=== PATIENT | female | born 1970 | race Caucasian/White ===

== ENCOUNTER → 2022-01-26 | Outpatient (CLI) | payer OTHER ==
[~2022-01-26] MED LIST: HYDCHL25 PO; LISI5 PO; METO100ER PO
[2022-01-26 09:15] LABS: BASOPHILS ABSOLUTE AUTO 0.05 K/mm3 (0.00-0.23); BASOPHILS PERCENT AUTO 0 % (0-2); EOSINOPHILS ABSOLUTE AUTO 0.05 K/mm3 (0.00-0.68); EOSINOPHILS PERCENT AUTO 0 % (0-6); Hematocrit 45.4 % (33.0-51.0); IMMATURE GRAN ABSOLUTE AUTO 0.08 K/mm3 (0.00-0.10); IMMATURE GRAN PERCENT AUTO 1 % (0-1); LYMPHOCYTES ABSOLUTE AUTO 2.03 K/mm3 (0.84-5.20); LYMPHOCYTES PERCENT AUTO 17 % (21-46); MONOCYTES ABSOLUTE AUTO 0.67 K/mm3 (0.16-1.47); MONOCYTES PERCENT AUTO 6 % (4-13); Mean Corpuscular HGB 31.4 pg (26.0-34.0); Mean Corpuscular HGB Conc 35.2 g/dL (31.5-36.5); Mean Corpuscular Volume 89 fL (80-100); Mean Platelet Volume 9.6 fL (9.1-12.4); NEUTROPHILS ABSOLUTE AUTO 9.14 K/mm3 (1.96-9.15); NEUTROPHILS PERCENT AUTO 76 % (41-73); Platelet Count 241 K/mm3 (150-400); RDW Standard Deviation 38.9 fL (35.1-46.3); Red Blood Cell Count 5.09 M/mm3 (3.80-5.20); White Blood Cell Count 12.02 K/mm3 (4.00-11.30)
[2022-01-26 09:24] LABS: Albumin, Blood 4.4 g/dL (3.4-5.0); Bilirubin, Total 0.8 mg/dL (0.1-1.0); Bun/Creatinine Ratio 17.2 (12.0-20.0); Calcium, Blood 10.3 mg/dL (8.5-10.1); Creatinine, Blood 1.34 mg/dL (0.40-1.00); Globulin, Blood 4.3 g/dL (2.2-4.0); Potassium, Blood 4.4 mmol/L (3.5-5.5); Total Protein, Blood 8.7 g/dL (6.4-8.2)
== END | disposition home or self-care (01) ==
LOC: LAB SHORT 09:11
PROVIDERS: Physician Assistant Medical
DX: R10.84 Generalized abdominal pain (principal)
CPT/HCPCS: 80053; 85025

== ENCOUNTER 2023-03-09 11:39 | Inpatient (IN) | payer OTHER ==
[2023-03-09] VITALS (15 sets, daily range): BP systolic 120–180; BP diastolic 78–111
[~2023-03-09] VITALS: Ht 149.9 cm; Wt 54.4 kg
[2023-03-09 12:37] LABS: BASOPHILS ABSOLUTE AUTO 0.04 K/mm3 (0.00-0.23); BASOPHILS PERCENT AUTO 0 % (0-2); EOSINOPHILS ABSOLUTE AUTO 0.05 K/mm3 (0.00-0.68); EOSINOPHILS PERCENT AUTO 0 % (0-6); Hematocrit 43.5 % (33.0-51.0); Hemoglobin 15.2 g/dL (11.5-16.0); IMMATURE GRAN PERCENT AUTO 1 % (0-1); LYMPHOCYTES ABSOLUTE AUTO 2.29 K/mm3 (0.84-5.20); LYMPHOCYTES PERCENT AUTO 15 % (21-46); MONOCYTES PERCENT AUTO 3 % (4-13); Mean Corpuscular HGB 31.6 pg (26.0-34.0); Mean Corpuscular HGB Conc 34.9 g/dL (31.5-36.5); Mean Corpuscular Volume 90 fL (80-100); Mean Platelet Volume 9.6 fL (9.1-12.4); NEUTROPHILS ABSOLUTE AUTO 12.29 K/mm3 (1.96-9.15); NEUTROPHILS PERCENT AUTO 80 % (41-73); Platelet Count 431 K/mm3 (150-400); RDW Coefficient Variation 11.9 % (11.7-14.2); RDW Standard Deviation 39.6 fL (35.1-46.3); Red Blood Cell Count 4.81 M/mm3 (3.80-5.20); White Blood Cell Count 15.27 K/mm3 (4.00-11.30)
[2023-03-09 13:06] LABS: Albumin, Blood 4.2 g/dL (3.4-5.0); Albumin/Globulin Ratio 0.9 (0.8-1.8); Bilirubin, Direct 0.1 mg/dL (0.0-0.3); Bilirubin, Indirect 0.5 mg/dL (0.1-0.7); Bilirubin, Total 0.6 mg/dL (0.1-1.0); Bun/Creatinine Ratio 15.7 (12.0-20.0); Calcium, Blood 11.4 mg/dL (8.5-10.1); Creatinine, Blood 1.21 mg/dL (0.40-1.00); Globulin, Blood 4.6 g/dL (2.2-4.0); Potassium, Blood 4.7 mmol/L (3.5-5.5); Total Protein, Blood 8.8 g/dL (6.4-8.2)
[2023-03-09] MEDS ORDERED: MOBIC15 MG PO (14:03)
[2023-03-09] MEDS ORDERED: LISI20 PO (14:14)
--- NOTE | 2023-03-09 14:39 | NUR ---
PT TO SDS VIA JESSENIA FROM ED, ACCOMPANIED BY FRIEND. Pre-Op teaching done. Pt verbalizes understanding. Patient confirms NPO status and agrees with scheduled surgery. Lungs clear T/O to Auscultation. Surgical site prepped with 2% Chlorhexidine cloth wipe.
[2023-03-09 14:43] LABS: Source, Urine Clean Catch
[2023-03-09 15:14] LABS: Appearance, Urine Clear (Clear); Bilirubin, Urine Neg (Neg); Blood, Urine Neg (Neg); Color, Urine Yellow (P-Yellow); Glucose Qualitative, Urine Neg (Neg); Ketones, Urine 1+ (Neg); Leukocyte Esterase, Urine Neg (Neg); Nitrite, Urine Neg (Neg); Protein, Urine 2+ (Neg); Urobilinogen, Urine NORM (Normal)
[2023-03-09 15:22] LABS: Bacteria Rare /hpf; Red Blood Cells, Urine 0-2 /hpf (0-2); Squamous Epithelial Cells Rare /hpf (Few); White Blood Cells, Urine 0-2 /hpf (0-5)
--- NOTE | 2023-03-09 17:33 | NUR ---
ARRIVAL TO SURGICAL UNIT ASSESSMENT CHARTED. DENIES N/V. FEW ICE CHIPS GIVEN. NGT CONNECTED TO LIS. PLEASANT & COOPERATIVE. PLAN TO START FENT GAS PRODUCER ONCE MEDICATION IS AVAILABLE FROM PHARMACY. FAMILY AT SIDE.
[2023-03-10] VITALS (8 sets, daily range): BP systolic 120–155; BP diastolic 78–96
--- NOTE | 2023-03-10 01:33 | NUR ---
PHARMACY CLARIFICATION. LATE ENTRY. TELEPHONE CALL PLACED TO PHARMACY REGARDING COMPATIBILITY QUESTION OF ZOSYN, LR, AND TRANSPORTATION MANAGER FENTANYL IN THE SAME LINE. PHARMACIST RECOMMENDED NS WITH ZOSYN IN A SEPARATE LINE. DISCUSSED WITH MOLD WASHER RONDA. NURSING PROTOCOL FOR TKO NS PLACED. NS AND ZOSYN IN ONE LINE AND LR AND TRANSPORTATION MANAGER IN ANOTHER.
[2023-03-10 04:54] LABS: BASOPHILS ABSOLUTE AUTO 0.02 K/mm3 (0.00-0.23); BASOPHILS PERCENT AUTO 0 % (0-2); EOSINOPHILS ABSOLUTE AUTO 0.03 K/mm3 (0.00-0.68); EOSINOPHILS PERCENT AUTO 0 % (0-6); Hematocrit 33.4 % (33.0-51.0); Hemoglobin 11.4 g/dL (11.5-16.0); IMMATURE GRAN ABSOLUTE AUTO 0.04 K/mm3 (0.00-0.10); IMMATURE GRAN PERCENT AUTO 0 % (0-1); LYMPHOCYTES ABSOLUTE AUTO 1.34 K/mm3 (0.84-5.20); LYMPHOCYTES PERCENT AUTO 13 % (21-46); MONOCYTES ABSOLUTE AUTO 0.48 K/mm3 (0.16-1.47); MONOCYTES PERCENT AUTO 5 % (4-13); Mean Corpuscular HGB 31.4 pg (26.0-34.0); Mean Corpuscular HGB Conc 34.1 g/dL (31.5-36.5); Mean Corpuscular Volume 92 fL (80-100); Mean Platelet Volume 9.9 fL (9.1-12.4); NEUTROPHILS ABSOLUTE AUTO 8.07 K/mm3 (1.96-9.15); NEUTROPHILS PERCENT AUTO 81 % (41-73); Platelet Count 239 K/mm3 (150-400); RDW Coefficient Variation 12.2 % (11.7-14.2); RDW Standard Deviation 40.9 fL (35.1-46.3); Red Blood Cell Count 3.63 M/mm3 (3.80-5.20); White Blood Cell Count 9.98 K/mm3 (4.00-11.30)
[2023-03-10 05:54] LABS: Calcium, Blood 8.5 mg/dL (8.5-10.1); Creatinine, Blood 1.31 mg/dL (0.40-1.00); Potassium, Blood 4.6 mmol/L (3.5-5.5)
--- NOTE | 2023-03-10 07:37 | NUR ---
SHIFT SUMMARY NOC. PT POD 1 FOR EXPLORATORY ABDOMINAL SURGERY. PT NG TUBE PATENT AND CONNECTED TO LIS AND DRAINING BROWN OUTPUT. PT NADER DRAIN PRODUCED 35 ML OF PINK SEROUS FLUID. PT'S PAIN CONTROLLED WITH SAW RUNNER AT THIS TIME. PT HAD LABETALOL HELD FOR 0000 DOSING, BUT WAS GIVEN AT 0600. PT DENIES N/V. PT'S EVANS IS PATENT DRAINING TO GRAVITY AND BELOW BLADDER LEVEL. PT RESTED WITH EYES CLOSED AND CALL LIGHT IN REACH.
--- NOTE | 2023-03-10 08:33 | NUR ---
NGT ONLY SCANT DRNG FROM NGT SINCE ADMIT. NGT ASPIRATED. NO OUTPUT. FLUSHED w/ 10MLs OF AIR & AUSCULATED; AIR SOUND EASILY RECOGNIZED.
--- NOTE | 2023-03-10 18:00 | NUR ---
SHIFT SUMMARY PT HAS DONE WELL TODAY. MADE GOALS FOR OOB x 2 & UP TO CHAIR x 1; MET GOALS. HAS DENIED N/V. PAIN REASONABLY CONTROLLED w/ BUSINESS SALES CONSULTANT. DENIT, NADER WNL.
--- NOTE | 2023-03-10 22:40 | NUR ---
KAIAKO KOHANGA REO KAIAKO KOHANGA REO PUMP WASTE DOCUMENTATION. WASTED 1.5mL OF FENTANYL. WITNESSED BY MACHINE PLATE STACKER.
[2023-03-11] VITALS (7 sets, daily range): BP systolic 124–152; BP diastolic 83–98
--- NOTE | 2023-03-11 00:05 | NUR ---
MARIO MIDLINE MARIO NOT SEALING TO SUCTION. MARIO REINFORCED/REDRESSED TO ATTEMPT RETURN OF SUCTION. SITE CLEANED AND PATTED DRY. DRESSING CHANGED TO GAUZE c ADHESIVE BORDER. C/D/I.
--- NOTE | 2023-03-11 04:20 | NUR ---
SHIFT SUMMARY POD 2 EX LAP c CLAUDIA PATCH. NO ACUTE CHANGES OVERNIGHT. VS WNL FOR PT. TELE REPORT SINUS RHYTHM T/O NIGHT. BORDERED GAUZE C/D/I, SCANT SANGUINOUS DRAINAGE. NADER DRAINING SEROSANGUINOUS FLUID. NG TUBE DRAINING BILE TO LOW INTERMITTEN SUCTION, NO SIGNIFICANT OUTPUT OVERNIGHT. NPO, EXCEPT FOR MINIMAL ICE CHIPS. EVANS TO D/C THIS AM, FLOWING TO GRAVITY, YELLOW. AMBULATING SBA R/T LINES/CORDS. PT REPORTS PAIN TOLERABLE PER OPTICAL FABRICATOR ADMINISTRATION. CALL LIGHT WITHIN REACH, BED IN LOWEST POSITION, WILL REPORT TO DAY RN.
--- NOTE | 2023-03-11 11:20 | NUR ---
Pt. is awake and sitting in a recliner when she welcomes my visit. Pt. is pleasant. Facilitate a life review. Listen with interest and empathy. 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 As we continue in conversation, rapport is established. Pt. displays evidence of awareness and engagement. Pt. verbalized words of encouragement for the care she has received at [facility]. Prayed with Pt. Pt. verbalized gratitude for the spiritual care visit.
--- NOTE | 2023-03-11 19:31 | NUR ---
SUMMARY: PT IS POD2 EX LAP WITH GRAM PATCH. A/O, VSS. TELE WNL. SURGICAL SITE WNL, SLIGHT DRAINAGE NOTED, CHANGED X1 TODAY BY DR. MOREIRA. NADER DRAIN WNL, SS DRAINAGE, SEE CHARTED OUTPUT. NGT TO LIS, TOTAL OUTPUT 60ML GREEN/BROWN DRAINAGE. PT REPORTS IS PASSING GAS, ACTIVE BOWEL TONES. PT UP AMBULATING AND TO CHAIR X2 TODAY, TOLERATES WELL. PRACTICAL NURSING TEACHER DEMAND BUTTON CONTINUES TO MANAGE PAIN WELL. ANTIBIOTICS INFUSED. NO ACUTE CONCERNS, REPORT PASSED TO AKITY RN.
[2023-03-12 02:05] VITALS: BP 153/87
[2023-03-12 04:49] LABS: Bun/Creatinine Ratio 8.7 (12.0-20.0); Calcium, Blood 8.8 mg/dL (8.5-10.1); Creatinine, Blood 1.15 mg/dL (0.40-1.00); Magnesium, Blood 1.8 mg/dL (1.6-2.4); Phosphorus, Blood 2.4 mg/dL (2.5-4.9); Potassium, Blood 3.6 mmol/L (3.5-5.5)
--- NOTE | 2023-03-12 05:45 | NUR ---
NOC SHIFT SUMMARY: CONTINUES ON FENTANYL RESEARCH ASSISTANT PROFESSOR. UP WITH SBA TO BATHROOM. NADER DRAIN IN PLACE. NG TUBE CONTINUES. MIDLINE INCISION DRESSING CDI. PATIENT IS ALERT AND ORIENTED X4.
[2023-03-12 07:07] VITALS: BP 147/96
[2023-03-12 11:43] VITALS: BP 162/90
[2023-03-12 15:18] VITALS: BP 161/102
--- NOTE | 2023-03-12 18:32 | NUR ---
SHIFT SUMMARY PT A/OX 4. PLEASANT AND COOPERATIVE. ABLE TO MAKE NEEDS KNOWN. PT HAS BEEN NPO T/O SHIFT. NG TUBE PATENT AND DRAINING; 400MLS OUT THIS SHIFT. NADER DRAIN IN PLACE. NO S/S OF INFECTION 25MLS OUTPUT SEROSANGUINEOUS. PT UT TO THE BATHROOM W/ ASSISTANCE. FOUNDATION MAKER IN PLACE WITH PAIN CONTROLLED. DR VARGAS AT BEDSIDE TODAY TO OBSERVE DRAIN AND SURGICAL DRESSING. NO CONCERNS NOTED. PLAN FOR UPPER GI STUDY ON TUESDAY. PT TO BE NPO UNTIL THAT TIME.
[2023-03-12 18:40] VITALS: BP 158/99
[2023-03-13] VITALS (9 sets, daily range): BP systolic 135–167; BP diastolic 83–106
--- NOTE | 2023-03-13 04:57 | NUR ---
SHIFT SUMMARY PT HAS RESTED OFF AND ON T/O THE NIGHT. FENTANYL CLEAN IN PLACES OPERATOR CONTINUED ORDERED. PT RATES HER PAIN 5 WHEN ASKED AND STATES HER PAIN HAS BEEN TOLERABLE. NG TUBE IN PLACE WITH A MODERATE AMOUT OF GREEN DISCHARGE. NADER DRAIN IN PLACE, WITH MODERATE AMOUNT OF SEROSANGUINOUS DISCHARGE. MEDIPORE DRESSING C/D/I. BOWEL TONES HYPOACTIVE AT THE START OF THE SHIFT. SHE REPORTS PASSING GAS, AND HAD A BM THIS AM. PT HYPERTENSIVE, MEDS PER EMAR. IV ANTIBIOTICS CONTINUED PER ORDERS. PT HAS BEEN HAVING SOME HALLUCINATIONS THIS SHIFT, PT AWOKE FROM SLEEPING AND THOUGHT HER ROOM WAS FLOODING, SHE PRESSED HER CALL LIGHT AND ASKED STAFF TO COME TO HER ROOM. SURVEY RESEARCH ANALYST WENT TO ROOM AND PT TOLD HER THAT SHE WAS STANDING DIRECTLY IN THE WATER. AFTER A FEW MINUTES PT REALIZED THAT SHE WAS HALLUCINATING. PT OTHERWISE HAS BEEN A/OX4. 1 ASSIST TO THE BATHROOM. BED IN LOWEST POSITION, CALL LIGHT WITHIN REACH.
--- NOTE | 2023-03-13 18:54 | NUR ---
DRESSING CHANGE ABD DRESSING CHANGED, ISLAND DRESSING PLACED. CLEANSED AND CHANGED CHG DRESSING AROUND NADER DRAIN. TAPE SECURING NG TUBE CHANGED.
--- NOTE | 2023-03-13 19:16 | NUR ---
SHIFT SUMMARY PT IS POD#4 FROM A CLAUDIA PATCH. PT IS HAVING BM'S BUT NG TUBE REMAINS IN PLACE AT THIS TIME. PAIN MANAGED WITH COLLAR CLOSER LOCKSTITCH. HALLUCINATIONS HAVE DECREASED AND PT IS ATTEMPTING TO REDUCE USE. PT IS FORGETFUL BED ALARM IN PLACE. PT IS A SBA FOR HELP WITH LINES AND TUBES. CALL LIGHT WITHIN REACH.
[2023-03-14 05:50] VITALS: BP 157/100
[2023-03-14 07:14] VITALS: BP 152/96
--- NOTE | 2023-03-14 07:40 | NUR ---
POD 5 S/P CLAUDIA PATCH. BP REMAINS ELEVATED, PT ASYMPTOMATIC, MEDICATED PER EMAR. DRESSING CDI. PT REP PAIN MINIMAL, USED 30MCG FROM REVENUE OFFICER. PT C/O MILD NAUSEA, ZOFRAN GIVEN W/REP RELIEF. NGT HAD 400ML GREEN DRNG OUT. PT REP PASSING FLATUS, HAD 1 LIQ BM. NADER PUT OUT 20 ML LIGHT SS DRNG. PT UP OOB W/SBA, RACHEL WELL.
[2023-03-14 11:26] VITALS: BP 146/89
--- NOTE | 2023-03-14 12:16 | NUR ---
NG TUBE REMOVED PER DR. MOREIRA REQUEST, PATIENT TOLERATED WELL. SIPPING ON WATER AT THIS TIME. NEW IV START IN R AC. IVF RUNNING PER ORDER. PATIENT DENIES N/V, PAIN AT THIS TIME.
[2023-03-14 14:37] VITALS: BP 134/97
--- NOTE | 2023-03-14 16:04 | NUR ---
SHIFT SUMMARY NG TUBE REMOVED TODAY AFTER UGI. PATIENT TOLERATING CL INTAKE. HAVING SEVERAL SMALL LOOSE STOOLS. PASSING FLATUS. DENIES N/V. IV SALINE LOCKED. TELE MONITOR DC'D. PATIENT AMBULATES OUTSIDE AND IN CASTELAN. TOLERATING PO TYLENOL FOR PAIN MANAGEMENT. VSS. CALL LIGHT IN REACH.
[2023-03-14 19:35] VITALS: BP 137/87
[2023-03-15 04:33] VITALS: BP 145/77
--- NOTE | 2023-03-15 06:18 | NUR ---
POD 5 S/P CLAUDIA PATCH. PT VSS T/O NIGHT; BP IMPROVING. DRESSING CDI. PT REP PAIN MINIMAL, TYLENOL GIVEN X1 PER PT REQ. PT RACHEL CL PO, DENIED N/V, REP +FLATUS AND BM. NADER PUT OUT 20 ML LIGHT SS DRNG. PT AMB INDEP IN ROOM, RACHEL WELL. PT REP HAVING SLEPT BETTER TONIGHT, IS IN GOOD SPIRITS THIS AM.
--- NOTE | 2023-03-15 06:36 | NUR ---
STOOL PT HAD SMALL BM THIS AM. STOOL LIQUID W/FEW SMALL RUST COLORED MUCUS APPEARING PIECES.
[2023-03-15 07:27] VITALS: BP 126/81
[2023-03-15] MEDS ORDERED: ONDA4ODT MM (09:20)
[2023-03-15] MEDS ORDERED: OMEP20ER PO (09:20)
[2023-03-15] MEDS ORDERED: ACET325 PO (09:24)
--- NOTE | 2023-03-15 10:37 | NUR ---
DISCHARGE IV TAKE OUT DISCHARGE INSTRUCTIONS GIVEN AND PATIENT SIGNS UNDERSTANDING. ALL BELONGINGS TAKEN TO VEHICLE. PATIENT WALKS OUT TO VEHICLE ON HER OWN.
== END 2023-03-15 09:45 | disposition home or self-care (01) | DRG 329 ==
LOC: ER 11:39 → SURS 11:40
PROVIDERS: Physician Assistant; Student in an Organized Health Care Education/Training Program; ADMIT Surgery
PROC: 0DU907Z Supplement Duodenum with Autologous Tissue Substitute, Open Approach (ICD-10-PCS; principal; 2023-03-09 14:30)
DX: K25.5 Chronic or unspecified gastric ulcer with perforation (principal); K65.9 Peritonitis, unspecified; R18.8 Other ascites; K26.5 Chronic or unspecified duodenal ulcer with perforation; K52.9 Noninfective gastroenteritis and colitis, unspecified; N18.2 Chronic kidney disease, stage 2 (mild); K66.8 Other specified disorders of peritoneum; I12.9 Hypertensive chronic kidney disease with stage 1 through stage 4 chronic kidney disease, or unspecified chronic kidney disease; F17.210 Nicotine dependence, cigarettes, uncomplicated; F10.90 Alcohol use, unspecified, uncomplicated; Z79.811 Long term (current) use of aromatase inhibitors; Z79.899 Other long term (current) drug therapy
CPT/HCPCS: 36415; 74177; 74240; 80048; 80076; 81001; 82947; 83690; 83735; 84100; 85025; 87338; 93005; 93010; 96361-59; 96374-59; 96375-59; 99285-25; A9270; C9113; J0360; J1100; J1650; J1885; J2250; J2405; J2543; J2704; J2710; J2765; J3010; J7030; J7050; J7120; Q9967

== ENCOUNTER 2023-05-26 08:06 | Day surgery (SDC) | payer OTHER ==
[~2023-05-26] VITALS: Ht 149.9 cm; Wt 56.1 kg
[~2023-05-26 08:06] MED LIST changes: +ACET325 PO; +LISI20 PO; -METO100ER PO; +METO25ER PO; +MOBIC15 MG PO; +OMEP20ER PO; +ONDA4ODT MM; +VITAMIN D310 MC4 PO
--- NOTE | 2023-05-26 08:48 | NUR ---
05/26/23 0848 Yamila Gustafson PT COMFORTABLE IN BED. CALL LIGHT WITHIN REACH. BED IN LOWEST POSITION SIDE RAILS UP
[2023-05-26 12:47] VITALS: BP 166/97
== END 2023-05-26 11:20 | disposition home or self-care (01) ==
LOC: ORSCSDS 08:06
PROVIDERS: Surgery
PROC: 0DJD8ZZ Inspection of Lower Intestinal Tract, Via Natural or Artificial Opening Endoscopic (ICD-10-PCS; principal; 2023-05-26 09:30)
PROC: 0DB78ZX Excision of Stomach, Pylorus, Via Natural or Artificial Opening Endoscopic, Diagnostic (ICD-10-PCS; principal; 2023-05-26 09:30)
PROC: 0DB48ZX Excision of Esophagogastric Junction, Via Natural or Artificial Opening Endoscopic, Diagnostic (ICD-10-PCS; principal; 2023-05-26 09:30)
DX: Z87.11 Personal history of peptic ulcer disease (principal); K20.90 Esophagitis, unspecified without bleeding; K29.70 Gastritis, unspecified, without bleeding; Z12.11 Encounter for screening for malignant neoplasm of colon; K57.30 Diverticulosis of large intestine without perforation or abscess without bleeding; I10 Essential (primary) hypertension; Z79.899 Other long term (current) drug therapy; F17.210 Nicotine dependence, cigarettes, uncomplicated
CPT/HCPCS: 88305; 88342; J2704; J7120